=== PATIENT | male | born 1975 | race Two or more races ===

== ENCOUNTER 2017-11-02 15:46 | Emergency (ER) | payer SELFPAY ==
[~2017-11-02] VITALS: Ht 152.4 cm; Wt 91.0 kg
[2017-11-02] MEDS ORDERED: LIDOCAINE HCL/PF 1% 2ML VIAL INFIL ONE (16:30)
[2017-11-02] MEDS ORDERED: TETANUS, DIPHTHERIA, PERTUSSIS VAC/PF 0.5ML (>7YR OLD) IM ONE (16:30)
[2017-11-02] MEDS ORDERED: LIDOCAINE HCL/PF 1% 10 MG/ML 5ML VIAL IJ ONE (17:00)
[2017-11-02] MEDS ORDERED: ACETAMINOPHEN 325MG TABLET PO ONE (17:30)
[2017-11-02] MEDS ORDERED: BACITRACIN ZINC OINT UDPKT TOP ONE (17:30)
[2017-11-02 17:42] VITALS: BP 165/91
== END 2017-11-02 17:43 | disposition home or self-care (01) ==
LOC: ER 15:46
DX: S61.313A Laceration without foreign body of left middle finger with damage to nail, initial encounter (principal); W26.0XXA Contact with knife, initial encounter; Y93.89 Activity, other specified; Y92.89 Other specified places as the place of occurrence of the external cause; Y99.8 Other external cause status; Z98.890 Other specified postprocedural states
CPT/HCPCS: 90471; 90715; 99283; J3490